=== PATIENT | female | born 1940 | race Caucasian/White ===

== ENCOUNTER 2021-11-16 13:35 | Inpatient (IN) | payer MEDICARE ==
[2021-11-16] MEDS ORDERED: Ondansetron PF 4 MG/2 ML Vial ONE (14:13)
[2021-11-16 14:41] LABS: #Eosinphils 0.1 thou/uL (0.0-0.7); #Lymphocytes 1.6 thou/uL (1.20-3.40); #Monocytes 0.7 thou/uL (0.11-0.59); #Neutrophils 11.1 thou/uL (1.40-6.50); %Basophils 0.1 % (0.0-1.0); %Eosinophils 0.9 % (0.0-10.0); %Lymphocytes 11.7 % (21.0-51.0); %Neutrophils 82.3 % (42.0-75.0); Hemoglobin 9.8 g/dL (12.0-16.0); Mean Corpuscular HGB CONC 30.9 g/dL (32.0-36.0); Mean Corpuscular Hemoglobin 27.7 pg (27.0-31.0); Mean Corpuscular Volume 89.4 fL (78.0-98.0); Mean Platelet Volume 6.1 fL (7.4-10.4); Platelet Count 582 thou/uL (130-400); Red Blood Cell (RBC) Count 3.52 mill/uL (4.20-5.40); White Blood Cell (WBC) Count 13.5 thou/uL (4.8-10.8)
[2021-11-16 15:04] LABS: ALT (SGPT) 22 U/L (8-55); AST (SGOT) 27 U/L (5-34); Albumin 3.1 g/dL (3.4-4.8); Alkaline Phosphatase 84 U/L (40-110); Anion Gap 17 mmol/L (10-20); BUN (Urea Nitrogen) 14 mg/dL (9.8-20.1); Bilirubin, Total 0.5 mg/dL (0.2-1.2); Calc. Creatinine Clearance 0 mL/min (70-130); Calcium 8.8 mg/dL (7.8-10.44); Carbon Dioxide 26 mmol/L (23-31); Chloride 98 mmol/L (98-107); Estimated GFR 81; Globulin 3.4 g/dL (2.4-3.5); Glucose 126 mg/dL (83-110); Lipase 68 U/L (8-78); Magnesium 1.5 mg/dL (1.6-2.6); Potassium 3.8 mmol/L (3.5-5.1); Protein, Total 6.5 g/dL (5.8-8.1); Sodium 137 mmol/L (136-145)
[2021-11-16 15:13] LABS: SARS-CoV-2 NAA Rapid Test Not Detected (NotDetected)
[2021-11-16] MEDS ORDERED: Cefepime 2 GM VIAL ONE (16:47)
[2021-11-16] MEDS ORDERED: metroNIDAZOLE 500 MG/100 ML BAG ONE (16:47)
[2021-11-16 17:26] LABS: Bilirubin Negative (Negative); Blood, Urine Negative (Negative); Clarity Clear (Clear); Glucose, Urine (Dipstick) Normal (Negative); Ketone, Urine 40 mg/dL (Negative); Leukocyte Negative Leu/uL (Negative); Nitrite Negative (Negative); Protein, Urine (Dipstick) 30 mg/dL (Neg-Trace); RBC/HPF 0-3 HPF (0-3); Specific Gravity, Urine 1.018 (1.002-1.036); Squamous Epithelial 0-3 HPF (0-3); Urobilinogen Normal mg/dL (Less than 2); pH, Urine 6.5 (5.0-9.0)
[2021-11-16 17:27] LABS: Bacteria/HPF 1+ HPF (None Seen)
[2021-11-16] MEDS ORDERED: Acetaminophen 650 MG Suppository PR PRN (17:30)
[2021-11-16] MEDS ORDERED: Acetaminophen 325 MG TAB PO PRN (17:30)
[2021-11-16] MEDS ORDERED: Ondansetron ODT 4 MG TAB PO PRN (17:30)
[2021-11-16] MEDS ORDERED: Bisacodyl 10 MG SUPP PR PRN (17:30)
[2021-11-16] MEDS ORDERED: Ondansetron PF 4 MG/2 ML Vial IVP PRN (17:30)
[2021-11-16] MEDS ORDERED: Magnesium 2 GM/50 ML(in water) 2 GM in Premix Bag 1 BAG IVPB SCH (17:34)
[2021-11-16 18:54] LABS: Troponin I Less than 0.010 ng/mL (< 0.028)
[2021-11-16] MEDS: Sodium Chloride 0.9% 1,000 ML IV SCH (22:56)
[2021-11-16] MEDS: metroNIDAZOLE 500 MG in Premix Bag 1 BAG IVPB SCH (23:12)
[2021-11-16] MEDS: Enoxaparin Sodium 40 MG/0.4 ML SYRINGE SC SCH (23:27)
[2021-11-16] MEDS: Atorvastatin Calcium 40 MG TAB PO SCH (23:31)
[2021-11-16 23:39] VITALS: BMI 24.3
[2021-11-17] MEDS: cefTRIAXone\\ROCEPHIN 1 GM in Sodium Chloride 0.9% 100 ML IVPB SCH (02:40)
[2021-11-17 04:37] LABS: #Eosinphils 0.2 thou/uL (0.0-0.7); #Lymphocytes 2.2 thou/uL (1.20-3.40); #Monocytes 0.7 thou/uL (0.11-0.59); #Neutrophils 6.7 thou/uL (1.40-6.50); %Basophils 0.3 % (0.0-1.0); %Eosinophils 1.7 % (0.0-10.0); %Lymphocytes 22.5 % (21.0-51.0); %Monocytes 7.2 % (0.0-10.0); %Neutrophils 68.3 % (42.0-75.0); Hemoglobin 8.6 g/dL (12.0-16.0); Mean Corpuscular HGB CONC 31.8 g/dL (32.0-36.0); Mean Corpuscular Hemoglobin 28.6 pg (27.0-31.0); Platelet Count 473 thou/uL (130-400); Red Blood Cell (RBC) Count 3.01 mill/uL (4.20-5.40); White Blood Cell (WBC) Count 9.8 thou/uL (4.8-10.8)
[2021-11-17 04:54] LABS: Anion Gap 15 mmol/L (10-20); BUN (Urea Nitrogen) 13 mg/dL (9.8-20.1); Calc. Creatinine Clearance 93 mL/min (70-130); Calcium 8.6 mg/dL (7.8-10.44); Carbon Dioxide 25 mmol/L (23-31); Chloride 103 mmol/L (98-107); Estimated GFR 94; Glucose 96 mg/dL (83-110); Magnesium 1.8 mg/dL (1.6-2.6); Potassium 3.1 mmol/L (3.5-5.1); Sodium 140 mmol/L (136-145)
[2021-11-17] MEDS: metroNIDAZOLE 500 MG in Premix Bag 1 BAG IVPB SCH (06:22)
[2021-11-17] MEDS ORDERED: Meclizine HCl 12.5 MG TAB PO PRN (07:35)
[2021-11-17] MEDS ORDERED: Non-Formulary Item 1 EACH (Fluticasone/Vilanterol [Breo Ellipta] 100 MCG/25 MCG Blst.W.De IH SCH (09:00)
[2021-11-17] MEDS ORDERED: Non-Formulary Item 1 EACH (Sertraline Hcl [Zoloft] 50 MG Tablet) PO SCH (09:00)
[2021-11-17] MEDS ORDERED: Non-Formulary Item 1 EACH (Lisinopril [Lisinopril] 30 MG Tablet) PO SCH (09:00)
[2021-11-17] MEDS: Sodium Chloride 0.9% 1,000 ML IV SCH (09:57)
[2021-11-17] MEDS: Clopidogrel Bisulfate 75 MG TAB PO SCH (09:58)
[2021-11-17] MEDS: Aspirin 81 mg Enteric Coated Tablet PO SCH (09:58)
[2021-11-17] MEDS: Lisinopril 10 MG TAB PO SCH (09:58)
[2021-11-17] MEDS: Baclofen 10 MG TAB PO SCH ×2 (09:58→20:53)
[2021-11-17] MEDS: Pantoprazole 40 MG VIAL IVP SCH (09:59)
[2021-11-17] MEDS ORDERED: Electrolyte Replacement Protocol 1 EACH FS SCH (12:00)
[2021-11-17] MEDS ORDERED: Potassium Chloride 20 MEQ TAB PO SCH (12:00)
[2021-11-17] MEDS ORDERED: Magnesium 2 GM/50 ML(in water) 2 GM in Premix Bag 1 BAG IVPB SCH (14:00)
[2021-11-17] MEDS ORDERED: Metoprolol Tartrate 25 MG TAB PO SCH (14:00)
[2021-11-17] MEDS: Mometasone 100 MCG/Formoterol 5 MCG 120 PUFF INHALER INH SCH (18:42)
[2021-11-17] MEDS: Mirtazapine 15 MG TAB PO SCH (20:53)
[2021-11-17] MEDS: Metoprolol Tartrate 50 MG TAB PO SCH (20:53)
[2021-11-17] MEDS: Enoxaparin Sodium 40 MG/0.4 ML SYRINGE SC SCH (20:53)
[2021-11-17] MEDS: Atorvastatin Calcium 40 MG TAB PO SCH (20:53)
[2021-11-18] MEDS: cefTRIAXone\\ROCEPHIN 1 GM in Sodium Chloride 0.9% 100 ML IVPB SCH (01:23)
[2021-11-18 04:30] LABS: #Eosinphils 0.2 thou/uL (0.0-0.7); #Lymphocytes 2.4 thou/uL (1.20-3.40); #Monocytes 0.7 thou/uL (0.11-0.59); #Neutrophils 6.7 thou/uL (1.40-6.50); %Basophils 0.1 % (0.0-1.0); %Lymphocytes 23.9 % (21.0-51.0); %Monocytes 7.1 % (0.0-10.0); Mean Corpuscular HGB CONC 32.5 g/dL (32.0-36.0); Mean Corpuscular Hemoglobin 29.2 pg (27.0-31.0); Mean Corpuscular Volume 89.6 fL (78.0-98.0); Platelet Count 473 thou/uL (130-400); RBC Distribution Width 15.4 % (11.5-14.5); Red Blood Cell (RBC) Count 3.09 mill/uL (4.20-5.40)
[2021-11-18 04:51] LABS: Anion Gap 15 mmol/L (10-20); BUN (Urea Nitrogen) 8 mg/dL (9.8-20.1); Calc. Creatinine Clearance 102 mL/min (70-130); Calcium 8.6 mg/dL (7.8-10.44); Carbon Dioxide 25 mmol/L (23-31); Chloride 103 mmol/L (98-107); Estimated GFR 96; Glucose 97 mg/dL (83-110); Magnesium 1.6 mg/dL (1.6-2.6); Potassium 3.4 mmol/L (3.5-5.1); Sodium 140 mmol/L (136-145)
[2021-11-18] MEDS ORDERED: Magnesium 2 GM/50 ML(in water) 2 GM in Premix Bag 1 BAG IVPB SCH (05:30)
[2021-11-18] MEDS: Mometasone 100 MCG/Formoterol 5 MCG 120 PUFF INHALER INH SCH ×2 (07:26→18:48)
[2021-11-18] MEDS ORDERED: Potassium Chloride 20 MEQ TAB PO SCH (08:00)
[2021-11-18] MEDS: Lisinopril 10 MG TAB PO SCH (09:02)
[2021-11-18] MEDS: Baclofen 10 MG TAB PO SCH ×2 (09:02→20:29)
[2021-11-18] MEDS: Aspirin 81 mg Enteric Coated Tablet PO SCH (09:02)
[2021-11-18] MEDS: Clopidogrel Bisulfate 75 MG TAB PO SCH (09:02)
[2021-11-18] MEDS: Pantoprazole 40 MG VIAL IVP SCH (09:03)
[2021-11-18] MEDS: Metoprolol Tartrate 50 MG TAB PO SCH ×2 (09:03→20:29)
[2021-11-18] MEDS: Enoxaparin Sodium 40 MG/0.4 ML SYRINGE SC SCH (20:28)
[2021-11-18] MEDS: Mirtazapine 15 MG TAB PO SCH (20:29)
[2021-11-18] MEDS: Atorvastatin Calcium 40 MG TAB PO SCH (20:29)
[2021-11-19] MEDS: cefTRIAXone\\ROCEPHIN 1 GM in Sodium Chloride 0.9% 100 ML IVPB SCH (02:35)
[2021-11-19 04:41] LABS: #Eosinphils 0.1 thou/uL (0.0-0.7); #Lymphocytes 2.4 thou/uL (1.20-3.40); #Monocytes 0.8 thou/uL (0.11-0.59); #Neutrophils 7.5 thou/uL (1.40-6.50); %Basophils 0.1 % (0.0-1.0); %Eosinophils 1.3 % (0.0-10.0); %Lymphocytes 22.1 % (21.0-51.0); %Monocytes 7.4 % (0.0-10.0); %Neutrophils 69.1 % (42.0-75.0); Hemoglobin 9.5 g/dL (12.0-16.0); Mean Corpuscular HGB CONC 32.7 g/dL (32.0-36.0); Mean Corpuscular Hemoglobin 29.6 pg (27.0-31.0); Mean Corpuscular Volume 90.6 fL (78.0-98.0); Platelet Count 513 thou/uL (130-400); RBC Distribution Width 15.3 % (11.5-14.5); Red Blood Cell (RBC) Count 3.22 mill/uL (4.20-5.40); White Blood Cell (WBC) Count 10.9 thou/uL (4.8-10.8)
[2021-11-19 05:03] LABS: Anion Gap 16 mmol/L (10-20); BUN (Urea Nitrogen) 7 mg/dL (9.8-20.1); Calc. Creatinine Clearance 100 mL/min (70-130); Calcium 8.9 mg/dL (7.8-10.44); Carbon Dioxide 25 mmol/L (23-31); Chloride 102 mmol/L (98-107); Estimated GFR 95; Glucose 115 mg/dL (83-110); Potassium 3.7 mmol/L (3.5-5.1); Sodium 139 mmol/L (136-145)
[2021-11-19] MEDS: Mometasone 100 MCG/Formoterol 5 MCG 120 PUFF INHALER INH SCH ×2 (06:58→19:32)
[2021-11-19] MEDS: Baclofen 10 MG TAB PO SCH ×2 (09:17→21:10)
[2021-11-19] MEDS: Clopidogrel Bisulfate 75 MG TAB PO SCH (09:17)
[2021-11-19] MEDS: Aspirin 81 mg Enteric Coated Tablet PO SCH (09:17)
[2021-11-19] MEDS: Lisinopril 10 MG TAB PO SCH (09:17)
[2021-11-19] MEDS: Metoprolol Tartrate 50 MG TAB PO SCH (10:16)
[2021-11-19] MEDS: Diltiazem 125 MG in Sodium Chloride 0.9% 100 ML IVPB SCH ×2 (12:55→21:24)
[2021-11-19] MEDS: Amiodarone 200 MG TAB PO SCH ×2 (15:51→21:10)
[2021-11-19] MEDS: Lactated Ringer's 1,000 ML IV SCH (16:44)
[2021-11-19] MEDS: Mirtazapine 15 MG TAB PO SCH (21:09)
[2021-11-19] MEDS: Atorvastatin Calcium 40 MG TAB PO SCH (21:10)
[2021-11-19] MEDS: Apixaban 5 MG TAB PO SCH (21:10)
[2021-11-20 05:13] LABS: Magnesium 1.4 mg/dL (1.6-2.6); Phosphorus 3.2 mg/dL (2.3-4.7)
[2021-11-20] MEDS: Mometasone 100 MCG/Formoterol 5 MCG 120 PUFF INHALER INH SCH ×2 (06:51→19:08)
[2021-11-20] MEDS ORDERED: Magnesium Sulfate In Water 4 GM in Premix Bag 1 BAG IVPB SCH (09:00)
[2021-11-20] MEDS: Baclofen 10 MG TAB PO SCH ×2 (09:11→20:50)
[2021-11-20] MEDS: Amiodarone 200 MG TAB PO SCH ×3 (09:11→20:50)
[2021-11-20] MEDS: Lisinopril 10 MG TAB PO SCH (09:12)
[2021-11-20] MEDS: Aspirin 81 mg Enteric Coated Tablet PO SCH (09:13)
[2021-11-20] MEDS: Clopidogrel Bisulfate 75 MG TAB PO SCH (09:13)
[2021-11-20] MEDS: Apixaban 5 MG TAB PO SCH ×2 (09:13→20:50)
[2021-11-20] MEDS: Diltiazem 125 MG in Sodium Chloride 0.9% 100 ML IVPB SCH (09:28)
[2021-11-20] MEDS: Lactated Ringer's 1,000 ML IV SCH (09:49)
[2021-11-20] MEDS: Mirtazapine 15 MG TAB PO SCH (20:50)
[2021-11-20] MEDS: Atorvastatin Calcium 40 MG TAB PO SCH (20:50)
[2021-11-21 04:48] LABS: #Eosinphils 0.2 thou/uL (0.0-0.7); #Lymphocytes 1.9 thou/uL (1.20-3.40); #Monocytes 0.7 thou/uL (0.11-0.59); %Basophils 0.3 % (0.0-1.0); %Eosinophils 2.4 % (0.0-10.0); %Lymphocytes 24.2 % (21.0-51.0); %Monocytes 9.3 % (0.0-10.0); %Neutrophils 63.8 % (42.0-75.0); Hemoglobin 7.9 g/dL (12.0-16.0); Mean Corpuscular HGB CONC 32.1 g/dL (32.0-36.0); Mean Corpuscular Hemoglobin 28.7 pg (27.0-31.0); Mean Corpuscular Volume 89.3 fL (78.0-98.0); Mean Platelet Volume 5.9 fL (7.4-10.4); Platelet Count 473 thou/uL (130-400); Red Blood Cell (RBC) Count 2.74 mill/uL (4.20-5.40); White Blood Cell (WBC) Count 7.8 thou/uL (4.8-10.8)
[2021-11-21 05:13] LABS: Anion Gap 10 mmol/L (10-20); BUN (Urea Nitrogen) 12 mg/dL (9.8-20.1); Calc. Creatinine Clearance 105 mL/min (70-130); Calcium 8.4 mg/dL (7.8-10.44); Carbon Dioxide 29 mmol/L (23-31); Chloride 101 mmol/L (98-107); Estimated GFR 96; Glucose 119 mg/dL (83-110); Potassium 3.2 mmol/L (3.5-5.1); Sodium 137 mmol/L (136-145)
[2021-11-21 05:27] LABS: Free T4 (Free Thyroxine) 1.1 ng/dL (0.70-1.48)
[2021-11-21] MEDS ORDERED: Potassium Chloride 20 MEQ TAB PO SCH (06:00)
[2021-11-21] MEDS: Mometasone 100 MCG/Formoterol 5 MCG 120 PUFF INHALER INH SCH ×2 (07:41→19:25)
[2021-11-21] MEDS: Apixaban 5 MG TAB PO SCH ×2 (09:47→20:40)
[2021-11-21] MEDS: Lisinopril 10 MG TAB PO SCH (09:47)
[2021-11-21] MEDS: Aspirin 81 mg Enteric Coated Tablet PO SCH (09:50)
[2021-11-21] MEDS: Baclofen 10 MG TAB PO SCH ×2 (09:50→20:40)
[2021-11-21] MEDS: Amiodarone 200 MG TAB PO SCH ×3 (09:50→20:40)
[2021-11-21] MEDS: Atorvastatin Calcium 40 MG TAB PO SCH (20:40)
[2021-11-21] MEDS: Mirtazapine 15 MG TAB PO SCH (20:40)
[2021-11-22 04:57] LABS: #Basophils 0.1 thou/uL (0.0-0.2); #Eosinphils 0.2 thou/uL (0.0-0.7); #Monocytes 0.6 thou/uL (0.11-0.59); #Neutrophils 5.9 thou/uL (1.40-6.50); %Basophils 0.6 % (0.0-1.0); %Eosinophils 2.2 % (0.0-10.0); %Lymphocytes 22.7 % (21.0-51.0); %Monocytes 6.9 % (0.0-10.0); %Neutrophils 67.6 % (42.0-75.0); Hemoglobin 8.3 g/dL (12.0-16.0); Mean Corpuscular HGB CONC 32.3 g/dL (32.0-36.0); Mean Corpuscular Volume 89.9 fL (78.0-98.0); Mean Platelet Volume 6.1 fL (7.4-10.4); Platelet Count 543 thou/uL (130-400); RBC Distribution Width 14.9 % (11.5-14.5); Red Blood Cell (RBC) Count 2.86 mill/uL (4.20-5.40); White Blood Cell (WBC) Count 8.7 thou/uL (4.8-10.8)
[2021-11-22 05:20] LABS: Anion Gap 13 mmol/L (10-20); BUN (Urea Nitrogen) 10 mg/dL (9.8-20.1); Calc. Creatinine Clearance 102 mL/min (70-130); Calcium 8.7 mg/dL (7.8-10.44); Carbon Dioxide 28 mmol/L (23-31); Chloride 102 mmol/L (98-107); Estimated GFR 95; Glucose 114 mg/dL (83-110); Potassium 3.7 mmol/L (3.5-5.1); Sodium 139 mmol/L (136-145)
[2021-11-22] MEDS: Mometasone 100 MCG/Formoterol 5 MCG 120 PUFF INHALER INH SCH (07:26)
[2021-11-22] MEDS: Lisinopril 10 MG TAB PO SCH (08:06)
[2021-11-22] MEDS: Baclofen 10 MG TAB PO SCH (08:06)
[2021-11-22] MEDS: Amiodarone 200 MG TAB PO SCH (08:07)
[2021-11-22] MEDS: Aspirin 81 mg Enteric Coated Tablet PO SCH (08:07)
[2021-11-22] MEDS: Apixaban 5 MG TAB PO SCH (08:07)
[2021-11-22 12:29] VITALS: BP 113/54; TEMP 98.8
== END 2021-11-22 12:45 | DRG 309 ==
LOC: ERS 13:35 → T4-A 16:57 → 2NO 21:25 → OBSVTOIN 11-17 11:53
PROVIDERS: ADMIT Family Medicine; ATTEND Hospitalist
DX: I47.1 Supraventricular tachycardia (principal); I69.354 Hemiplegia and hemiparesis following cerebral infarction affecting left non-dominant side; N39.0 Urinary tract infection, site not specified; Z66 Do not resuscitate; E83.42 Hypomagnesemia; D69.6 Thrombocytopenia, unspecified; D64.9 Anemia, unspecified; E78.5 Hyperlipidemia, unspecified; F32.A Depression, unspecified; I48.92 Unspecified atrial flutter; I48.0 Paroxysmal atrial fibrillation; Z88.0 Allergy status to penicillin; Z28.81 Immunization not carried out due to patient having had the disease; Z79.899 Other long term (current) drug therapy; Z79.82 Long term (current) use of aspirin; Z79.02 Long term (current) use of antithrombotics/antiplatelets; Z98.890 Other specified postprocedural states
CPT/HCPCS: 36415; 71045; 80048; 80053; 81003; 81015; 83605; 83690; 83735; 83880; 84100; 84439; 84443; 84481; 84484; 85025; 85060; 87040; 87086; 93005; 93010; 93306; 96372; 96375; 96376; C9113; G0378; J0692; J0696; J1650; J2405; J3475; J3490; J7050; J7120; U0002

== ENCOUNTER 2023-11-08 12:01 | Emergency (ER) | payer MEDICARE ==
[2023-11-08] MEDS ORDERED: Lidocaine 1% w/Epinephrine 1:100K 20 ML VIAL ONE (14:08)
[2023-11-08] MEDS ORDERED: Acetaminophen 500 MG TAB ONE (14:08)
[2023-11-08] MEDS ORDERED: Boostrix 0.5 ML (Tdap) VIAL (>/=7 yrs of age) ONE (14:09)
[2023-11-08] MEDS ORDERED: Bacitracin 1 PK ONE (15:32)
== END 2023-11-08 15:38 | disposition home or self-care (01) ==
LOC: ERS 12:01
DX: S01.01XA Laceration without foreign body of scalp, initial encounter (principal); S50.811A Abrasion of right forearm, initial encounter; I10 Essential (primary) hypertension; J45.909 Unspecified asthma, uncomplicated; Z79.82 Long term (current) use of aspirin; W19.XXXA Unspecified fall, initial encounter
CPT/HCPCS: 12002; 70450; 70486; 90715